=== PATIENT | female | born 1965 | race Caucasian/White ===

== ENCOUNTER 2016-09-29 13:01 | Emergency (ER) | payer OTHER ==
[~2016-09-29] VITALS: Ht 160 cm; Wt 82.0 kg
[2016-09-29] MEDS ORDERED: SODIUM CHLORIDE 0.9% 1,000 ML IV ONE (13:09)
[2016-09-29] MEDS ORDERED: LORazepam 2 MG/ML, 1ML IVPush ONE (13:30)
[2016-09-29] MEDS ORDERED: SODIUM CHLORIDE FLUSH 10ML SYR IVF ONE (13:30)
[2016-09-29] MEDS ORDERED: MECLIZINE CHEWABLE 25 MG TAB PO ONE (13:30)
[2016-09-29 13:37] LABS: ASPARTATE AMINO TRANSFERASE 30 U/L (15-37); BLOOD UREA NITROGEN 12 mg/dL (7-18)
[2016-09-29 13:43] LABS: IS PT STATUS REG ER OR PRE ER? YES
[2016-09-29] MEDS: PLEASE ENTER ALLERGIES MC SCH ×4 (13:57→14:40)
[2016-09-29] MEDS: PLEASE ENTER HEIGHT AND WEIGHT MC SCH ×2 (13:57→14:40)
[2016-09-29] MEDS ORDERED: MECLIZINE CHEWABLE 25 MG TAB ONE (14:01)
[2016-09-29] MEDS ORDERED: LORazepam 2 MG/ML, 1ML ONE (14:02)
[2016-09-29] MEDS ORDERED: ATOR10TA PO (14:31)
[2016-09-29] MEDS ORDERED: LAMO50TA2 PO (14:32)
[2016-09-29] MEDS ORDERED: LISI-170 PO (14:32)
[2016-09-29] MEDS ORDERED: TRAZ50TA18 PO (14:33)
[2016-09-29] MEDS ORDERED: CHOL5000 PO (14:34)
[2016-09-29] MEDS ORDERED: VILA40TA PO (14:36)
[2016-09-29] MEDS ORDERED: ATOR20TA PO (14:37)
[2016-09-29] MEDS ORDERED: LISI-167 PO (14:37)
[2016-09-29] MEDS ORDERED: LAMO25TB PO (14:38)
[2016-09-29] MEDS ORDERED: LIDOCAINE 1%, 20ML ONE (16:22)
[2016-09-29 16:41] VITALS: BP 124/79
== END 2016-09-29 16:59 | disposition home or self-care (01) ==
LOC: ED 15:03
DX: L02.211 Cutaneous abscess of abdominal wall (principal); R42 Dizziness and giddiness; R11.0 Nausea
CPT/HCPCS: 10160; 36415; 70450; 71010; 80053; 84484; 85025; 93005; 96361; 96374; 99285; J2060; J7030

== ENCOUNTER 2017-05-23 11:52 | Emergency (ER) | payer OTHER ==
[~2017-05-23] VITALS: Ht 165.1 cm; Wt 83.5 kg
[~2017-05-23 11:52] MED LIST: ATOR10TA PO; ATOR20TA PO; CHOL5000 PO; LAMO25TB PO; LAMO50TA2 PO; LISI-167 PO; LISI-170 PO; TRAZ50TA18 PO; VILA40TA PO
[2017-05-23 11:53] VITALS: BP 158/91
[2017-05-23] MEDS ORDERED: ONDANSETRON ODT 4 MG PO ONE (13:00)
[2017-05-23] MEDS ORDERED: HYDROmorphone 1 MG/ML, 1ML IM ONE ×2 (13:00→14:00)
[2017-05-23] MEDS ORDERED: KETOROLAC 30 MG/1 ML IM ONE (13:00)
[2017-05-23] MEDS ORDERED: HYDROmorphone 2 MG/ML, 1ML ONE ×2 (13:06→13:55)
[2017-05-23] MEDS ORDERED: KETOROLAC 30 MG/1 ML ONE (13:07)
[2017-05-23] MEDS ORDERED: ONDANSETRON ODT 8 MG ONE (13:07)
== END 2017-05-23 14:35 | disposition home or self-care (01) ==
LOC: ED 14:00
DX: M65.28 Calcific tendinitis, other site (principal); F31.9 Bipolar disorder, unspecified; I10 Essential (primary) hypertension; Z90.49 Acquired absence of other specified parts of digestive tract
CPT/HCPCS: 70450; 96372; 99284; J1170; J1885; Q0162